=== PATIENT | male | born 1945 | race Caucasian/White ===

== ENCOUNTER → 2016-10-04 | Outpatient (CLI) | payer MEDICARE, BC ==
[2016-10-04 10:14] LABS: INR - (THERAPEUTIC) 1.61 (0.92-1.07)
== END ==
LOC: LGSMG 10:04
PROVIDERS: Student in an Organized Health Care Education/Training Program
DX: Z00.00 Encounter for general adult medical examination without abnormal findings (principal); Z01.818 Encounter for other preprocedural examination

== ENCOUNTER → 2016-10-16 | Outpatient (CLI) | payer MEDICARE, BC ==
--- NOTE | ~2016-10-16 | ENPV ---
Vascular Lower Extremities DVT Study Procedure Demographics Patient Name SELENE RIVERA JR Date of Study 10/16/2016 Patient Number [id number] Gender Male Date of 1945 Age 71 Visit Number [id number] Height Accession Number [id number] Weight Room Number BSA BMI Referring Karyn Swann Interpreting Rashawn Breaux MD Physician Physician Physician Ordering Karyn Swann Adobe Ball Mixer Physician [place] Tour Guide Prasanna Rivera RVT stephanie Carmona RVT, [facility] Conclusions Summary No evidence of deep vein thrombosis or superficial thrombophlebitis in the right lower extremity . Unable to properly visualize the peroneal veins. Procedure Type of Study: Veins:Lower Extremities DVT Study, Lower Extremity Right. Indications for Study:Unilateral pain and edema. Appropriate Use Criteria:6 Patient Status:Routine. Study Location:Vascular Lab. Technical Quality:Limited visualization. - Preliminary reported to:Dr. Boss. Velocities are measured in cm/s ; Diameters are measured in cm Right Lower Extremities DVT Study Measurements Right 2D and Doppler Measurements + + + + +------+------+ + !Location !Visualized!Compressibility!Thrombosis!Signal!Reflux!Reflux ! ! ! ! ! ! ! !(sec) ! + + + + +------+------+ + !GSV Thigh !Yes !Yes !None !Phasic! ! ! + + + + +------+------+ + !Common !Yes !Yes !None !Phasic! ! ! !Femoral ! ! ! ! ! ! ! + + + + +------+------+ + !Prox !Yes !Yes !None !Phasic! ! ! !Femoral ! ! ! ! ! ! ! + + + + +------+------+ + !Mid Femoral!Yes !Yes !None !Phasic! ! ! + + + + +------+------+ + !Dist !Yes !Yes !None !Phasic! ! ! !Femoral ! ! ! ! ! ! ! + + + + +------+------+ + !Popliteal !Yes !Yes !None !Phasic! ! ! + + + + +------+------+ + !PTV !Yes !Yes !None !Phasic! ! ! + + + + +------+------+ + !Peroneal !Yes !Yes !None !Phasic! ! ! + + + + +------+------+ + Left Lower Extremities DVT Study Measurements Left 2D and Doppler Measurements + + + + +------+------+ + !Location !Visualized!Compressibility!Thrombosis!Signal!Reflux!Reflux ! ! ! ! ! ! ! !(sec) ! + + + + +------+------+ + !Common !Yes !Yes !None !Phasic! ! ! !Femoral ! ! ! ! ! ! ! + + + + +------+------+ + Signature dtt: MERLY ARDON dtd: 10/16/16 1733 Physician Self Edit
== END | disposition disaster alternative care site (69) ==
LOC: GCAR 16:30
DX: M79.662 Pain in left lower leg (principal); M79.89 Other specified soft tissue disorders; D68.51 Activated protein C resistance; Z86.718 Personal history of other venous thrombosis and embolism; Z98.890 Other specified postprocedural states

== ENCOUNTER → 2016-12-06 | Outpatient (CLI) | payer MEDICARE, BC | END | disposition disaster alternative care site (69) | LOC: LGSMG 12:09 | DX: M20.61 Acquired deformities of toe(s), unspecified, right foot (principal); I10 Essential (primary) hypertension; M1A.9XX0 Chronic gout, unspecified, without tophus (tophi); D68.51 Activated protein C resistance; Z00.00 Encounter for general adult medical examination without abnormal findings; Z92.29 Personal history of other drug therapy; I12.9 Hypertensive chronic kidney disease with stage 1 through stage 4 chronic kidney disease, or unspecified chronic kidney disease; R80.9 Proteinuria, unspecified; E11.29 Type 2 diabetes mellitus with other diabetic kidney complication; I87.2 Venous insufficiency (chronic) (peripheral); E11.65 Type 2 diabetes mellitus with hyperglycemia ==